=== PATIENT | male | born 1965 | race Caucasian/White ===

== ENCOUNTER 2022-03-15 06:23 | Day surgery (SDC) | payer OTHER ==
[~2022-03-15] VITALS: Ht 175.3 cm; Wt 102.3 kg
[~2022-03-15 06:23] MED LIST: SODIUM CHLORIDE 0.9% 1,000 ML ONE
[2022-03-15] MEDS ORDERED: LIDOCAINE 2% 30 ML JELLY TP ONE (06:24)
[2022-03-15] MEDS ORDERED: BENZOCAINE 20% 50 MCG/SPRAY 57 GM TP ONE (06:24)
[2022-03-15] MEDS ORDERED: LIDOCAINE 4% 50 ML SOLUTION TP ONE (06:24)
[2022-03-15] MEDS ORDERED: ALBUTEROL SULFATE 2.5 MG/0.5 ML NEB SOLUTION NEB ONE (06:24)
[2022-03-15] MEDS ORDERED: SODIUM CHLORIDE 0.9% 1,000 ML IV ONE (06:30)
[2022-03-15 06:49] LABS: COVID AG,FIA SOURCE NASOPHARYNGEAL
[2022-03-15] MEDS ORDERED: FentaNYL CITRATE PF 100 MCG/2 ML VIAL ONE (07:17)
[2022-03-15] MEDS ORDERED: MIDAZOLAM HCL 5 MG/ML VIAL ONE (07:18)
[2022-03-15 07:36] LABS: GLUCOMETER DEV NAME(LOC) SDS.; GLUCOSE,POINT OF CARE 187 MG/DL (70-110)
[2022-03-15] MEDS ORDERED: DULO-114 PO (07:49)
[2022-03-15] MEDS ORDERED: GABA-1181 PO (07:49)
[2022-03-15] MEDS ORDERED: AZIT-84 PO (07:49)
[2022-03-15] MEDS ORDERED: ATOR40TA71 PO (07:49)
[2022-03-15] MEDS ORDERED: METF-446 PO (07:49)
[2022-03-15] MEDS ORDERED: IPRA3AMP24 NEB (07:49)
[2022-03-15] MEDS ORDERED: LISI40TA9 PO (07:49)
[2022-03-15] MEDS ORDERED: FLUT1DIS26 IH (07:49)
[2022-03-15] MEDS ORDERED: OMEP20CA12 PO (07:49)
[2022-03-15] MEDS ORDERED: PRED10TA3 PO (07:49)
[2022-03-15] MEDS ORDERED: DOXY-336 PO (07:49)
[2022-03-15] MEDS ORDERED: MONT-40 PO (07:49)
[2022-03-15] MEDS ORDERED: ASCO500T20 PO (07:49)
[2022-03-15] MEDS ORDERED: SUCR1TAB28 PO (07:49)
[2022-03-15] MEDS ORDERED: PRAZ2CAP2 PO (07:49)
[2022-03-15] MEDS ORDERED: BENZ200C53 PO (07:49)
[2022-03-15] MEDS ORDERED: MethylPREDNISolone SOD SUCC 125 MG/2 ML VIAL IVP ONE (08:45)
[2022-03-15] MEDS ORDERED: MethylPREDNISolone SOD SUCC 125 MG/2 ML VIAL ONE (09:11)
[2022-03-15] MEDS ORDERED: OXYGEN THERAPY IH SCH (20:00)
== END 2022-03-15 11:00 | disposition home or self-care (01) ==
LOC: SURGERY 06:23
PROVIDERS: ATTEND Internal Medicine Critical Care Medicine
DX: J38.4 Edema of larynx (principal); B37.0 Candidal stomatitis; J39.8 Other specified diseases of upper respiratory tract; E11.9 Type 2 diabetes mellitus without complications; Z72.89 Other problems related to lifestyle; J44.9 Chronic obstructive pulmonary disease, unspecified; F17.210 Nicotine dependence, cigarettes, uncomplicated; Z79.899 Other long term (current) drug therapy; Z98.890 Other specified postprocedural states
CPT/HCPCS: 31623; 31624; 71045; 82962; 87015; 87070; 87101; 87206; 87220; 87426; 88184; 88185; C9803; J2250; J2930; J3010; J7030; 88112; 88305; 88312; J7613; Z7610